=== PATIENT | male | born 1975 | race Caucasian/White ===

== ENCOUNTER 2018-09-24 22:32 | Emergency (ER) | payer MEDICARE, MEDICAID, SELFPAY ==
[2018-09-24 22:50] VITALS: BP 116/73; PULSE 73; RESP 18; TEMP 37; O2SAT 99; BMI 37.0
[2018-09-25] MEDS: KETOROLAC 60 MG/2 ML VIAL IM (00:38)
[2018-09-25] MEDS: CYCLOBENZAPRINE 10 MG PREPACK 1 BOTTLE MISC (00:38)
[2018-09-25] MEDS: HYDROCODONE/ACET 5/325 PREPACK 1 BOTTLE MISC (00:38)
[2018-09-25 01:10] VITALS: BP 113/68; PULSE 64; RESP 16; TEMP 36.3; O2SAT 98
--- NOTE | 2018-09-25 04:28 | ED_ITS ---
HPI - Back Pain/Injury General Chief Complaint: Back Pain/Injury Stated Complaint: BACK SPASMS Time Seen by Provider: 09/24/18 22:37 Source: patient Mode of arrival: ambulatory Limitations: no limitations History of Present Illness HPI Narrative: 42-year-old male nonsmoker with history of low back pain presents with gradually worsening lumbar pain and spasm ever since bending over to lift a heavy object a few days ago. He states his pain is worse with motion and improves with rest. He denies any radiation of this pain. He denies foot drop. He has no bowel or bladder control problems. He denies any fever or direct trauma. He has no history of IV drug abuse MD Complaint: back pain and back injury Onset (ago): day(s) Duration: constant Similar Symptoms Previously: Yes Location: lumbar spine Severity: moderate Quality: aching Radiation: none Relieving factors: immobilization Exacerbating factors: movement Context: while lifting Associated symptoms: denies other symptoms Treatments prior to arrival: NSAIDS Related Data Previous Rx's Medication Instructions Recorded prednisone 40 mg PO QDAY #10 tab 01/21/17 cyclobenzaprine 10 mg PO TID PRN #14 tab 09/25/18 hydrocodone-acetaminophen 1 tab PO Q4-6H PRN #10 tab 09/25/18 ketorolac 10 mg PO Q6H PRN #14 tab 09/25/18 Allergies Allergy/AdvReac Type Severity Reaction Status Date / Time pseudoephedrine Allergy Unknown Verified 09/25/18 00:32 [From ACTIFED] triprolidine [From ACTIFED] Allergy Unknown Verified 09/25/18 00:32 Review of Systems Constitutional Denies chills, Denies fever(s), Denies lethargy and Denies weakness Eyes Denies change in vision, Denies eye discharge, Denies irritation and Denies loss of vision ENT Ears, Nose, Mouth, and Throat: Denies change in voice, Denies neck pain and Denies sore throat Cardiovascular Denies chest pain, Denies irregular heart rhythm, Denies lightheadedness, Denies palpitations, Denies dyspnea, Denies dyspnea on exertion and Denies orthopnea Respiratory Denies cough, Denies dyspnea, Denies dyspnea on exertion and Denies wheezing Gastrointestinal Gastrointestinal: Denies abdominal pain, Denies change in bowel habits, Denies diarrhea, Denies nausea and Denies vomiting Genitourinary Denies hematuria, Denies flank pain, Denies urinary incontinence and Denies urinary urgency Musculoskeletal Reports back pain and Denies neck pain Integumentary/Breasts Denies pruritus, Denies erythema, Denies rash and Denies wounds Neurologic Denies confusion, Denies loss of vision and Denies weakness Psychiatric Denies anxiety, Denies confusion, Denies depression, Denies homicidal ideation and Denies suicidal ideation Endocrine Denies palpitations Hematologic/Lymphatic Denies easy bruising Allergic/Immunologic Denies wheezing PFSH Social History Smoking Status: Never smoker Social History Smoking Status: Never smoker Exam Narrative Exam Narrative: GEN: AOx3 and in mild distress EYES: Pupils are equal, round, and reactive to light and accommodation. Extraoccular muscles are intact bilaterally. There is no subconjunctival hemorrhage or exudate. CHEST: Lungs are clear to auscultation bilaterally and free of wheezes, rales, or rhonchi. Heart rate is regular rhythm, there are no murmurs, clicks, rubs, or gallops. There is no chest wall tenderness. ABD: Abdomen is soft and nontender. There is no guarding or rebound. Bowel sounds are normal in all 4 quadrants. There is no mass or organomegaly. EXT: Full painless ROM of all extremities with no loss of sensation or strength. SKIN: Warm, pink, and dry. No erythema or rash BACK: pressure steamer tender but free of any obvious external abnormalities. Patient exam notes decreased range of motion and muscle spasm, but no CVA tenderness, or vert ebral point tenderness. There are no symptoms of cauda equina such as saddle anesthesia, and decreased reflexes, decreased sensation or strength. Initial Vital Signs Initial Vital Signs: Vital Signs Temperature 98.6 F 09/24/18 22:50 Pulse Rate 73 09/24/18 22:50 Respiratory Rate 18 09/24/18 22:50 Blood Pressure 116/73 09/24/18 22:50 Pulse Oximetry 99 09/24/18 22:50 Course Orders Ordered: Discontinued Medications Hydrocodone Bitart/Acetaminophen (Vicodin Prepack) 1 bottle MISC SEEINSTR ONE Stop: 09/25/18 00:04 Last Admin: 09/25/18 00:38 Dose: 1 bottle Cyclobenzaprine HCl (Flexeril 10 Mg Prepack) 1 bottle MISC SEEINSTR ONE Stop: 09/25/18 00:04 Last Admin: 09/25/18 00:38 Dose: 1 bottle Ketorolac Tromethamine (Toradol) 60 mg IM NOW ONE Stop: 09/25/18 00:04 Last Admin: 09/25/18 00:38 Dose: 60 mg Vital Signs - 8 hr 09/24/18 22:50 09/25/18 01:10 Temperature 98.6 F 97.3 F L Pulse Rate 73 64 Respiratory Rate 18 16 Blood Pressure 116/73 113/68 Pulse Oximetry 99 98 MDM - Back Pain/Injury MDM Narrative Medical decision making narrative: Multiple etiologies of back pain considered including; Epidural abscess, cauda equina, mass occupying lesion, and other considered but thought less likely given the history and physical exam findings Discharge Plan Departure Patient Disposition: Home Clinical Impression: Strain of lumbar region Qualifiers: Encounter type: initial encounter Qualified Code(s): S39.012A - Strain of muscle, fascia and tendon of lower back, initial encounter Discharge Date/Time: 09/25/18 01:05 Interventions: ED Discharge Assessment Last Done: 09/25/18 01:10 Instructions: DI for Back Spasm Activity Restrictions/Additional Instructions: You have been prescribed narcotic medications. While on these medications you cannot drive or operate heavy machinery. Additionally you cannot sign legal documents or perform any duties such as this. 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 Please understand that we cannot provide further refills of narcotics or controlled substances through the ED and your pain management will need to be t hrough your Primary Care Provider Prescriptions: New cyclobenzaprine 10 mg tablet 10 mg PO TID PRN (Reason: muscle spasm) Qty: 14 RF: 0 hydrocodone-acetaminophen 5-325 mg tablet 1 tab PO Q4-6H PRN (Reason: pain) Qty: 10 RF: 0 ketorolac 10 mg tablet 10 mg PO Q6H PRN (Reason: pain) Qty: 14 RF: 0 No Action prednisone 20 MG tablet 40 mg PO QDAY Qty: 10 RF: 0 Referrals: Bill Maher MD [Non-Staff] -
== END 2018-09-25 01:05 | disposition home or self-care (01) ==
PROVIDERS: Emergency Provider Emergency Medicine
DX: S39.012A Strain of muscle, fascia and tendon of lower back, initial encounter (principal)
CPT/HCPCS: 96372; 99282; 99283; J1885